=== PATIENT | male | born 1955 | race American Indian/Alaskan Native ===

== ENCOUNTER 2017-12-09 12:27 | Inpatient (IN) | payer OTHER ==
[2017-12-09] MEDS ORDERED: ASPIRIN PO ONE (12:46)
[2017-12-09] MEDS ORDERED: HEPARIN/NS 5000 UNIT/500ML(CATH LAB) 1,000 ML IR ONE (13:15)
[2017-12-09] MEDS ORDERED: CALAN ONE (13:15)
[2017-12-09] MEDS ORDERED: XYLOCAINE 2% INFILTRATI ONE ×3 (13:15→13:45)
[2017-12-09] MEDS ORDERED: NITROGLYCERIN SYRINGE 3 ML ONE (13:15)
[2017-12-09] MEDS ORDERED: HEPARIN 10,000 UNITS/10 ML ONE (13:15)
[2017-12-09] MEDS ORDERED: NACL 0.9% 1000 ML 1,000 ML ONE (13:16)
[2017-12-09] MEDS ORDERED: AGGRASTAT DRIP (12.5 MG/250 ML) 12,500 MCG/250 ML BAG IV ONE (13:19)
[2017-12-09] MEDS ORDERED: ADRENALIN ONE (13:20)
[2017-12-09] MEDS ORDERED: ATROPINE 0.1% (CARDIAC) ONE (13:20)
[2017-12-09] MEDS ORDERED: VERSED ONE (13:20)
[2017-12-09] MEDS ORDERED: XYLOCAINE CARDIAC IV ONE (13:20)
[2017-12-09 13:21] LABS: Basophils % (Auto) 0.6 % (0.0-1.8); Eosinophils # (Auto) 0.1 K/mm3 (0.0-0.4); Eosinophils % (Auto) 1.1 % (0.0-4.3); Hematocrit 39.7 % (35.5-45.6); Hemoglobin 13.6 gm/dl (11.8-15.2); Lymphocytes # (Auto) 1.8 K/mm3 (1.2-5.4); Lymphocytes % (Auto) 23.8 % (13.4-35.0); Mean Corpuscular HGB Conc 34 % (32-34); Mean Corpuscular Hemoglobin 30 pg (28-32); Mean Corpuscular Volume 88 fl (84-94); Monocytes # (Auto) 0.6 K/mm3 (0.0-0.8); Monocytes % (Auto) 8.5 % (0.0-7.3); Platelet Count 251 K/mm3 (140-440); Red Blood Count 4.51 M/mm3 (3.65-5.03); Red Cell Distribution Width 13.5 % (13.2-15.2)
[2017-12-09] MEDS ORDERED: SUBLIMAZE ONE (13:21)
--- NOTE | 2017-12-09 13:22 | Emergency Department Report ---
ED Chest Pain HPI - General Chief Complaint: Chest Pain Stated Complaint: CHEST PAIN Time Seen by Provider: 12/09/17 12:39 Source: patient, family Mode of arrival: Ambulatory Limitations: No Limitations - History of Present Illness Initial Comments: 62-year-old man with history of coronary artery disease, presents with acute onset of chest pain approximately 60-90 minutes prior to arrival while outside mowing the lawn. Discomfort was felt as a deep ache and heaviness in the chest , with some radiation to the right arm. He became diaphoretic, had to stop, but pain persisted, and patient contacted family was brought in for further evaluation. Patient had worrisome EKG changes for acute inferior myocardial infarction on initial finding at triage, was brought back for immediate evaluation, and repeat EKG after 20 minutes showed significant progression of ST elevation in the inferior lead with T-wave inversions, as well as some lateral precordial ST changes and some hyperacute T-wave changes in the anterior septal region as well. Past medical history significant for hypertension, as well as type 2 diabetes, [id number], with cardiac event 1997, with either catheterization or stenting, but patient confuses both is the same procedure. He describes the discomfort as being 8-9 out of 10, and the worst was 9-10 out of 10 prior to arrival. He has taken no medication for his pains. MD Complaint: chest pain Onset/Timin -: Sudden, minutes(s) Onset: during exertion Pain Location: substernal, left chest Pain Radiation: RUE Quality: aching, heaviness, dull Improves With: nothing Worsens With: nothing re: diaphoresis. denies: nausea Treatments Prior to Arrival: none Aspirin use within the Past 7 Days: (0) No - Related Data Allergies Allergy/AdvReac Type Severity Reaction Status Date / Time No Known Allergies Allergy Unverified 12/09/17 12:42 Heart Score - HEART Score History: Highly suspicious EKG: Significant ST-depression Age: 45-65 Risk factors: > 3 risk factors or hx of atherosclerotic disease Troponin: < normal limit (unable to fully evaluate to rapid treatment based on STEMI protocol) HEART Score: 7 ED Review of Systems ROS: Stated complaint: CHEST PAIN Other details as noted in HPI Comment: All other systems reviewed and negative Constitutional: see HPI, diaphoresis, malaise, weakness. denies: fever ENT: denies: ear pain, throat pain Respiratory: shortness of breath Cardiovascular: chest pain Endocrine: excessive sweating Gastrointestinal: denies: abdominal pain, nausea Genitourinary: denies: urgency, dysuria Musculoskeletal: denies: back pain, joint swelling, arthralgia Skin: denies: rash, lesions Neurological: denies: headache, weakness, paresthesias Psychiatric: denies: anxiety, depression Hematological/Lymphatic: denies: easy bleeding, easy bruising ED Past Medical Hx - Past Medical History Hx Hypertension: Yes Hx Diabetes: Yes Additional medical history: HYPERLIPIDEMIA - Surgical History Past Surgical History?: No - Social History Smoking Status: Never Smoker Substance Use Type: None ED Physical Exam - General Limitations: No Limitations General appearance: lethargic (awake, oriented, appears distracted, moderately diaphoretic), in distress - Head Head exam: Present: atraumatic - Eye Eye exam: Present: PERRL - ENT ENT exam: Present: normal orophraynx - Neck Neck exam: Present: normal inspection - Respiratory Respiratory exam: Present: normal lung sounds bilaterally - Cardiovascular Cardiovascular Exam: Present: regular rate - GI/Abdominal GI/Abdominal exam: Present: soft. Absent: tenderness - Rectal Rectal exam: Present: deferred - Extremities Exam Extremities exam: Present: normal inspection - Neurological Exam Neurological exam: Present: alert, oriented X3, CN II-XII intact. Absent: motor sensory deficit - Psychiatric Psychiatric exam: Present: other (distracted by discomfort) ED Course Vital Signs 12/09/17 12:42 Temperature 98.5 F Pulse Rate 91 H Respiratory 18 Rate Blood Pressure 136/75 O2 Sat by Pulse 98 Oximetry - Reevaluation(s) Reevaluation #1: 12/09/17 13:24 Patient had brief run of ventricular tachycardia, self extenuation, which repeated once, approximately 1300 hrs. No countershock given. BP 143/82. ROGERS score - Rogers Score Aspirin use within the Past 7 Days: (0) No 3 or more CAD Risk Factors: (1) Yes 2 or more Angina events in past 24 hrs: (1) Yes Known CAD with more than 50% Stenosis: (1) Yes ST Deviation Greater than 0.5mm: (1) Yes ED Medical Decision Making - EKG Data -: EKG Interpreted by Me (initial EKG worrisome for acute inferior myocardial infarction with abnorma) EKG shows normal: sinus rhythm, axis (-11), intervals (normal QT interval 430 ms), QRS complexes (normal QRS complexes), ST-T waves (1 mm elevation on the inferior lead 3 of initial EKG, with 3 mm elevation and T-wave inversion in inferior lead 3 and aVF on repeat EKG 20 minutes later. ) Rate: normal - EKG Data Interpretation: acute [place] - Medical Decision Making STEMI protocol initiated on the basis of EKG findings and patient's clinical condition. Patient prep rapidly, seen immediately by nurse practitioner Julia Araiza, and prepared for immediate Barge Pilot intervention. Critical Care Time: Yes Critical care attestation.: If time is entered above; I have spent that time in minutes in the direct care of this critically ill patient, excluding procedure time. Critical Care Time: 15 minutes of critical care time was provided in assessing and stabilizing this patient with an acute myocardial infarction, preparing patient for immediate catheterization, as well as observing and treating immediate complications of ventricular tachycardia, and possible immediate physiologic decompensation. ED Disposition Clinical Impression: Myocardial infarction acute Qualifiers: Myocardial infarction type: ST elevation myocardial infarction Involved coronary artery: other inferior wall coronary artery Qualified Code(s): I21.19 - ST elevation (STEMI) myocardial infarction involving other coronary artery of inferior wall Disposition: DC-09 OP ADMIT IP TO THIS HOSP Is pt being admited?: Yes Does the pt Need Aspirin: No (given in ED) Condition: Stable Time of Disposition: 13:28
[2017-12-09] MEDS ORDERED: MAGNESIUM SULFATE 2GM/50ML 2 GM/50 ML BAG IV ONE ×2 (13:26→13:40)
[2017-12-09] MEDS ORDERED: CORDARONE IV ONE (13:26)
[2017-12-09] MEDS ORDERED: HEPARIN 10,000 UNITS/10 ML 5,000 UNIT in NACL 0.9% 500 ML 500 ML IR ONE (13:30)
[2017-12-09] MEDS ORDERED: SUBLIMAZE IV ONE (13:35)
[2017-12-09] MEDS ORDERED: VERSED IV ONE (13:35)
[2017-12-09] MEDS ORDERED: CORDARONE 150 MG in D5W 100 ML IV ONE (13:39)
[2017-12-09] MEDS ORDERED: HEPARIN 10,000 UNITS/10 ML IV ONE (13:48)
[2017-12-09] MEDS ORDERED: AGGRASTAT DRIP IV ONE (13:51)
[2017-12-09 13:56] LABS: BUN/Creatinine Ratio 12; Blood Urea Nitrogen 16 mg/dL (9-20); Calcium 9.4 mg/dL (8.4-10.2); Hemolysis Index 2
[2017-12-09] MEDS ORDERED: EFFIENT PO ONE ×2 (14:07→14:26)
--- NOTE | 2017-12-09 14:19 | Consultation ---
History of Present Illness Consult date: 12/09/17 Requesting physician: FAYE GERONIMO Consult reason: other (STEMI) History of present illness: The pt is a 62 YO male with a past medical history significant for HTN, HLP, DM. He is previously unknown to our practice. He presented with complaints of chest pain for approx 1 hour prior to admission. He reports that he was mowing his lawn when he developed chest pain. He describes the pain as a constant, nonradiating midsternal pressure. The pain is associated with diaphoresis. He denies any SOB, n/v, dizziness or syncope. He reports a history of "heart attack " with heart cath and questionable stent placement in 1997. During evaluation, pt was noted to have NSVT. Initial ECG was concerning for STEMI and thus STEMI protocol was activated and pt was taken to labor custodian for emergent coronary angiography. Past History Past Medical History: CAD (questionable), diabetes, hypertension, hyperlipidemia Social history: lives with family. denies: smoking, alcohol abuse, prescription drug abuse Medications and Allergies Allergies Allergy/AdvReac Type Severity Reaction Status Date / Time No Known Allergies Allergy Unverified 12/09/17 12:42 Review of Systems Constitutional: no weight loss, no weight gain, no fever, no chills Ears, nose, mouth and throat: no ear pain, no nose pain, no sinus pressure, no sinus pain Cardiovascular: chest pain, high blood pressure, no orthopnea, no palpitations, no rapid/irregular heart beat, no edema, no syncope, no lightheadedness, no shortness of breath, no dyspnea on exertion, no leg edema, no decreased exercise tolerance Respiratory: no cough, no shortness of breath, no dyspnea on exertion, no congestion, no wheezing, no pain on inspiration Gastrointestinal: no abdominal pain, no nausea, no vomiting, no diarrhea, no constipation, no change in bowel habits Genitourinary Male: no dysuria, no hematuria, no flank pain, no discharge, no urinary frequency, no urinary hesitancy Musculoskeletal: no neck stiffness, no neck pain, no shooting arm pain, no arm numbness/tingling, no low back pain, no shooting leg pain, no leg numbness/ tingling, no redness of joints Integumentary: no rash, no pruritis, no redness, no sores, no wounds Neurological: no head injury, no paralysis, no weakness, no parathesias, no numbness, no tingling, no seizures, no syncope Psychiatric: no anxiety Endocrine: no cold intolerance, no heat intolerance Hematologic/Lymphatic: no easy bruising, no easy bleeding, no lymphadenopathy Allergic/Immunologic: no urticaria, no wheezing, no persistent infections Physical Examination Vital Signs Temp Pulse Resp BP Pulse Ox 98.5 F 91 H 18 136/75 98 12/09/17 12:42 12/09/17 12:42 12/09/17 12:42 12/09/17 12:42 12/09/17 12:42 General appearance: mild distress, other (pale, diaphoretic ) HEENT: Positive: PERRL, Normocephaly, Mucus Membranes Moist Neck: Positive: neck supple, trachea midline Cardiac: Positive: Reg Rate and Rhythm, S1/S2 Lungs: Positive: clear to auscultation Neuro: Positive: Grossly Intact Abdomen: Positive: Soft. Negative: Tender Skin: Positive: Clear. Negative: Rash, Wound Musculoskeletal: No Fluid Collection, No Pain, Normal Range of Motion Extremities: Absent: edema Results 12/09/17 13:11 12/09/17 13:11 CBC 12/09/17 Range/Units 13:11 WBC 7.5 (4.5-11.0) K/mm3 RBC 4.51 (3.65-5.03) M/mm3 Hgb 13.6 (11.8-15.2) gm/dl Hct 39.7 (35.5-45.6) % Plt Count 251 (140-440) K/mm3 Lymph # 1.8 (1.2-5.4) K/mm3 Owsley # 0.6 (0.0-0.8) K/mm3 Eos # 0.1 (0.0-0.4) K/mm3 Baso # 0.0 (0.0-0.1) K/mm3 Comprehensive Metabolic Panel 12/09/17 Range/Units 13:11 Sodium 139 (137-145) mmol/L Potassium 5.0 (3.6-5.0) mmol/L Chloride 99.4 (98-107) mmol/L Carbon Dioxide 25 (22-30) mmol/L BUN 16 (9-20) mg/dL Creatinine 1.3 (0.8-1.5) mg/dL Glucose 237 H (75-100) mg/dL Calcium 9.4 (8.4-10.2) mg/dL - Imaging and Cardiology Echo: pending Cardiac cath: pending EKG: report reviewed, image reviewed EKG interpretations - Telemetry EKG Rhythm: Sinus Rhythm - EKG Sinus rhythms and dysrhythmias: sinus rhythm Repolarization changes or abnormalities: early repolarization (normal variant), ST or T wave suggestive of ischemia Assessment and Plan Assessment: S/p acute inferior STEMI CAD s/p PCI of RCA x 2 NSVT - s/p 2g mag sulfate and 150mg IV amio bolus HTN HLP DM Plan: S/p [facility] with PCI x 2 of RCA. Admit to CCU per hospitalists. Initiate DAPT with ASA and effient. Obtain echo. Obtain serum Mg. Initiate low dose lopressor and lipitor. Obtain lipid panel in AM. Assessment and plan reviewed with pt and pt's family at bedside. The patient has been seen in conjunction with Dr. Jaqueline Morgan who agrees with the assessment and plan of care.
[2017-12-09] MEDS ORDERED: ALUM-MAG HYDROX-SIMETH 200-200-20MG/5ML ONE (14:25)
[2017-12-09] MEDS ORDERED: ALUM-MAG HYDROX-SIMETH 200-200-20MG/5ML PO ONE (14:26)
--- NOTE | 2017-12-09 17:11 | Cardiac Catherization Report ---
REFERRING PHYSICIAN: ER physician. INDICATION FOR PROCEDURE: The patient is a pleasant 62-year-old gentleman with unclear medical history, who presents here with significant chest pain over the past days, worse today while mowing his lawn, seen in the Emergency Room with inferior ST elevation. STEMI protocol activated. He also had an episode of nonsustained VT in the Emergency Room. The patient brought to the boat laborer urgently. Risks, benefits, alternatives discussed prior to obtaining informed consent. PROCEDURE IN DETAIL: The patient was brought to the boat laborer urgently, prepped and draped in sterile fashion, 8 mL of 2% lidocaine used to anesthetize the right groin. A standard 6 Occitan sheath used to cannulate the right common femoral artery via modified Seldinger technique. All exchanges for exchange a J-tip guidewire. JL3.5 catheter engage left main. No dampening or ventricularization. Cineangiography performed in all projections. JR4 catheter was used to cross the aortic valve under fluoroscopic guidance. Left ventriculography performed in 30 [place] to the GUL[place]AN projections via hand injections, catheter flushed. Manual pullback performed with continuous pressure monitoring. Catheter used to engage the right coronary. No dampening or ventricularization. Cineangiography performed in all projections. DATA: Aortic pressure is 150/70, LV pressure is 150, LVEDP of 16 mmHg. Left ventriculography revealed normal systolic performance with estimated ejection fraction of 55-60%. No evidence of aortic stenosis. CORONARY ANATOMY: This is a right dominant system. Left main without significant disease, bifurcates left anterior descending and left circumflex. LAD is a moderate sized vessel, courses anterior intergroove, wraps around the apex. No significant disease in the LAD or diagonal system. Left circumflex is a moderate sized vessel, courses AV groove. No significant disease. Right coronary is a large vessel, courses AV groove, distally bifurcates in the posterior and posterolateral branch. There is a atherothrombotic occlusion of the mid and proximal right coronary with ROGERS 1 flow. This appears to be a dual culprit inferior STEMI. The patient's IV fluids were increased. The patient was given heparin, Aggrastat. Creatinine noted to be normal. The patient did note to me that he has had bleeding ulcers in the past and had significant anemia. The details are unclear at this point. Given severe large right coronary and history of nonsustained VT in the Emergency Room, I decided to proceed with a transvenous pacemaker. I used a 6-Occitan sheath placed in the right femoral vein under fluoroscopic guidance via modified Seldinger technique. A balloon tipped transvenous pacemaker was placed in the right ventricular apex without difficulty. The backup pacing is noted at 60 and functioning normal. We turned our attention to PCI. Abnormal ACT is already confirmed. The patient loaded with aspirin and Aggrastat. A JR4 guide with sideholes used to engage the right coronary without difficulties. As the Phoenix wire to cross both lesions without difficulty, a 2.5 x 12 balloon used to predilate the mid RCA lesion which is the worse of the 2 lesions. I used a 3.0 x 18 Vision bare metal stent. I used a bare metal stent because of these issues with bleeding ulcers in the recent past. I used a 3.0 x 12 Vision proximally deployed at 12 CANDY for 30 seconds. I postdilated proximally with a compliant, 10 x 3.5 noncompliant balloon. Excellent angiographic result. Intravascular ultrasound was performed and multiple passes were made. Both stents are well apposed and well expanded. There is no ostial disease noted. No other significant obstructive disease noted in the right coronary. ROGERS 3 flow. Final angiogram reveals excellent result. The patient is clinically stable. No complications. The patient is chest pain free, states, moderate sedation with Versed and fentanyl from 1:40 p.m. to 2:15 p.m. CONCLUSIONS: 1. Acute atherothrombotic occlusion of the proximal and mid right coronary (dual culprit inferior STEMI) in the milieu of an inferior ST elevation myocardial infarction. 2. Successful IVUS guided PCI of proximal and mid right coronary stents, status post bare metal Vision (3.0 x 18 in the mid segment and 3.0 x 12 in the proximal segment) with excellent final angiographic and ultrasonographic result. Bare metal stent was used due to questionable recent history of peptic ulcer disease. 3. Preserved left ventricular systolic performance, estimated ejection fraction of 55% -60%. 4. No aortic stenosis. 5. No significant obstructive disease noted on the left system. 6. Successful right femoral venous access with a fluoroscopic-guided placement of transvenous pacemaker. The patient is now clinically stable, chest pain free. Abnormal ACT confirmed loaded with aspirin and Effient. Chest pain clinically hemodynamically and electrically stable. Both sheaths and pacemaker once ACT less than 170, initiate IV fluids. Check echocardiogram. Risk factor modification discussed. Results of procedure explained in length to the patient and family. All questions and concerns were addressed. JOB# [id number] SBM/NTS
[2017-12-09 17:15] LABS: Chol/HDL Ratio 4.44 %
[2017-12-09] MEDS ORDERED: TYLENOL PO ONE (19:51)
[2017-12-09] MEDS ORDERED: AMBIEN PO ONE (21:00)
[2017-12-09] MEDS: LOPRESSOR PO SCH (21:54)
[2017-12-09] MEDS ORDERED: ZOFRAN IV PRN (23:22)
[2017-12-09] MEDS ORDERED: PERCOCET 5/325 PO PRN (23:22)
[2017-12-09] MEDS ORDERED: MORPHINE IV PRN (23:22)
[2017-12-09] MEDS ORDERED: SODIUM CHLORIDE FLUSH SYRINGE 10 ML IV PRN (23:22)
[2017-12-09] MEDS ORDERED: TYLENOL PO PRN (23:22)
[2017-12-10] MEDS: NACL 0.9% 1000 ML 1,000 ML IV SCH ×2 (00:15→15:17)
[2017-12-10] MEDS: PEPCID IV SCH ×3 (00:18→22:14)
[2017-12-10 06:16] LABS: Basophils % (Auto) 0.6 % (0.0-1.8); Eosinophils # (Auto) 0.1 K/mm3 (0.0-0.4); Eosinophils % (Auto) 1.7 % (0.0-4.3); Hematocrit 39.3 % (35.5-45.6); Hemoglobin 13.3 gm/dl (11.8-15.2); Lymphocytes # (Auto) 1.8 K/mm3 (1.2-5.4); Lymphocytes % (Auto) 25.6 % (13.4-35.0); Mean Corpuscular HGB Conc 34 % (32-34); Mean Corpuscular Hemoglobin 30 pg (28-32); Mean Corpuscular Volume 88 fl (84-94); Monocytes # (Auto) 0.6 K/mm3 (0.0-0.8); Monocytes % (Auto) 8.5 % (0.0-7.3); Platelet Count 210 K/mm3 (140-440); Red Blood Count 4.45 M/mm3 (3.65-5.03); Red Cell Distribution Width 13.9 % (13.2-15.2)
[2017-12-10 06:32] LABS: Alanine Aminotransferase 15 units/L (7-56); BUN/Creatinine Ratio 20; Blood Urea Nitrogen 14 mg/dL (9-20); Calcium 8.7 mg/dL (8.4-10.2); Hemolysis Index 15
--- NOTE | 2017-12-10 06:53 | Consultation ---
History of Present Illness Consult date: 12/10/17 Reason for consult: other (STEMI s/p PCI) History of present illness: The pt is a 62 YO male with a past medical history significant for HTN, HLP, DM. He is previously unknown to our practice. He presented with complaints of chest pain for approx 1 hour prior to admission. He reports that he was mowing his lawn when he developed chest pain. He describes the pain as a constant, nonradiating midsternal pressure. The pain is associated with diaphoresis. He denies any SOB, n/v, dizziness or syncope. He reports a history of "heart attack " with heart cath and questionable stent placement in 1997. During evaluation, pt was noted to have NSVT. Initial ECG was concerning for STEMI and thus STEMI protocol was activated and patient was taken to cath lab tech for emergent coronary angiography. PCI was done Patietn has been admitted to the critical care unit for monitoring and I have been consulted for critical care management. Past History Past Medical History: CAD (questionable), diabetes, hypertension, hyperlipidemia Social history: lives with family. denies: smoking, alcohol abuse, prescription drug abuse Medications and Allergies Allergies Allergy/AdvReac Type Severity Reaction Status Date / Time No Known Allergies Allergy Unverified 12/09/17 12:42 Home Medications Medication Instructions Recorded Confirmed Last Taken Type No Known Home Medications [No 12/11/17 12/11/17 Unknown History Reported Home Medications] Active Meds: Active Medications Acetaminophen (Tylenol) 650 mg PO Q4H PRN PRN Reason: Pain MILD(1-3)/Fever >100.5/PARRA Amlodipine Besylate (Norvasc) 5 mg PO QDAY [facility] Aspirin (Baby Aspirin) 81 mg PO DAILY [facility] Atorvastatin Calcium (Lipitor) 80 mg PO QHS [facility] Last Admin: 12/09/17 21:53 Dose: 80 mg Famotidine (Pepcid) 20 mg IV BID [facility] Last Admin: 12/10/17 00:18 Dose: 20 mg Glimepiride (Amaryl) 4 mg PO QDDIAB [facility] Sodium Chloride (Nacl 0.9% 1000 Ml) 1,000 mls @ 75 mls/hr IV DIRECT [facility] Last Admin: 12/10/17 00:15 Dose: 75 mls/hr Insulin Human Lispro (Humalog) 0 unit SUB-Q ACHS [facility]; Protocol Lisinopril (Zestril) 40 mg PO QDAY [facility] Metformin HCl (Glucophage) 1,000 mg PO BIDDIAB [facility] Metoprolol Tartrate (Lopressor) 25 mg PO BID [facility] Last Admin: 12/09/17 21:54 Dose: 25 mg Morphine Sulfate (Morphine) 2 mg IV Q4H PRN PRN Reason: Pain, Moderate (4-6) Ondansetron HCl (Zofran) 4 mg IV Q8H PRN PRN Reason: Nausea And Vomiting Oxycodone/Acetaminophen (Percocet 5/325) 1 tab PO Q6H PRN PRN Reason: Pain, Moderate (4-6) Prasugrel (Effient) 10 mg PO QDAY [facility] Sodium Chloride (Sodium Chloride Flush Syringe 10 Ml) 10 ml IV BID [facility] Sodium Chloride (Sodium Chloride Flush Syringe 10 Ml) 10 ml IV PRN PRN PRN Reason: LINE FLUSH Physical Examination Vital signs: Vital Signs Temp Pulse Resp BP Pulse Ox 98.5 F 91 H 18 136/75 98 12/09/17 12:42 12/09/17 12:42 12/09/17 12:42 12/09/17 12:42 12/09/17 12:42 Results - Laboratory Findings CBC and BMP: 12/10/17 05:17 12/11/17 07:24 Abnormal lab findings: Abnormal Labs 12/09/17 12/09/17 12/09/17 13:11 13:11 15:43 Will % (Auto) 8.5 H Creatinine Glucose 237 H POC Glucose Hemoglobin A1c Total Creatine Kinase CK-MB (CK-2) CK-MB (CK-2) Rel Index Troponin T 0.039 H D Cholesterol 240 H LDL Cholesterol Direct 187 H 12/09/17 12/09/17 12/10/17 17:59 20:34 00:57 Will % (Auto) Creatinine Glucose POC Glucose 144 H Hemoglobin A1c 8.0 H Total Creatine Kinase CK-MB (CK-2) CK-MB (CK-2) Rel Index Troponin T 0.110 H* D Cholesterol LDL Cholesterol Direct 12/10/17 12/10/17 05:17 05:17 Will % (Auto) 8.5 H Creatinine 0.7 L Glucose 148 H POC Glucose Hemoglobin A1c Total Creatine Kinase 377 H CK-MB (CK-2) 42.0 H CK-MB (CK-2) Rel Index 11.1 H Troponin T 0.328 H* D Cholesterol LDL Cholesterol Direct
[2017-12-10 07:07] LABS: Albumin 3.7 g/dL (3.9-5)
--- NOTE | 2017-12-10 08:38 | History and Physical Report ---
CHIEF COMPLAINT: Left-sided chest pain after lawn mowing at 11:00 a.m. HISTORY OF PRESENT ILLNESS: The patient is a 62-year-old male with history of hypertension, hyperlipidemia, insulin-dependent diabetes who was mowing his lawn when he developed chest tightness. Midsternal chest pain associated with diaphoresis. No shortness of breath, no nausea, no vomiting, no syncope. The patient had a heart catheterization before in 1997 and had clean coronary arteries at that time. The patient came to the ER and was treated as a STEMI and was taken to the entry level lab technician directly. In the entry level lab technician, the patient had 2 stents placed. PAST MEDICAL HISTORY: Significant for coronary artery disease, diabetes, hypertension, hyperlipidemia. SOCIAL HISTORY: Lives with the family. Does not smoke. No alcohol, no recreational drugs. PAST SURGICAL HISTORY: None. FAMILY HISTORY: Significant for hypertension. REVIEW OF SYSTEMS: Significant for retrosternal chest tightness and associated diaphoresis. No syncope, no seizures. Otherwise, a 14-point review of systems essentially negative. PHYSICAL EXAMINATION: GENERAL: Young elderly male, cooperative during examination. VITAL SIGNS: Blood pressure is 137/68, temperature is 98, pulse is 62, respirations 11. HEENT: Unremarkable. Pupils equal and reactive. NECK: Supple, no lymphadenopathy, no thyromegaly. LUNGS: Clear to auscultation and percussion. Good air entry. CARDIOVASCULAR: S1, S2 heard. No gallop, no murmur, no rub. Apical impulse in left fifth intercostal space and midclavicular line. ABDOMEN: Soft and benign. No hepatosplenomegaly. No guarding, no rigidity. Hernial orifices are normal. EXTREMITIES: Good pedal pulses. No pedal edema. CENTRAL NERVOUS SYSTEM: Alert and oriented x 4, nonfocal exam. LABORATORY DATA and EKG: EKG shows early repolarization, ST-T wave elevation and suggestive of ischemia. White count is 7500, H and H is 13.6 and 39.7, platelet count is 251,000. Electrolytes are normal. Glucose is 237. Troponin is 0.039, elevated 0.110 and 0.328. Cholesterol is 240, LDL is 187. ASSESSMENT AND PLAN: 1. STEMI. The patient had cardiac catheterization and 2 stents placed. The patient on aspirin and metoprolol 25 twice a day. Also, atorvastatin 80 mg daily and Effient 10 mg once a day for the stents. 2. Insulin-dependent diabetes. Continue home insulin and coverage. Continue metformin and glimepiride 4 mg once a day. Also, lisinopril 40 mg once a day. 3. Hyperlipidemia. Continue atorvastatin 80 mg p.o. daily. 4. Coronary artery disease. The patient already on aspirin and Effient. 5. DVT prophylaxis, Lovenox 40 mg subcutaneous daily. CRITICAL CARE STATEMENT: Due to high probability of a clinically significant sudden or life-threatening deterioration of the pulmonary, cardiac and renal systems, required my full and direct attention, intervention, and personal management. My aggregate critical care time was 35 minutes. This time is in addition to time spent performing reported procedures, but includes the followin. Data review and interpretation. 2. The patient assessment and monitoring of vital signs. 3. Documentation. 4. Medication orders and management. JOB# [id number]
[2017-12-10] MEDS: HumaLOG SUB-Q SCH ×4 (09:45→22:16)
--- NOTE | 2017-12-10 10:04 | Progress Note ---
Assessment and Plan Assessment: S/p acute inferior STEMI CAD s/p PCI of RCA NSVT HTN HLP DM - HgbA1c 8.0 Plan: S/p C yesterday with PCI x 2 of RCA. Cont ASA, effient, lipitor, lopressor. Initiate lisinopril. Obtain echo. Currently stable cardiac status. Pt may tx out of ICU to telemetry from cardiology standpoint. Possible d/c home in AM. Assessment and plan reviewed with pt and pt's at bedside. The patient has been seen in conjunction with Dr. Jaqueline Morgan who agrees with the assessment and plan of care. Subjective Date of service: 12/10/17 Principal diagnosis: STEMI Interval history: Pt resting comfortably in bed, denies any current complaints. no acute events overnight. telemetry reviewed - no arrhythmias noted overnight. at bedside. Objective Last Vital Signs Temp 97.7 F 12/10/17 08:00 Pulse 62 12/10/17 06:28 Resp 19 12/10/17 06:32 BP 137/68 12/10/17 06:32 Pulse Ox 97 12/10/17 06:32 - Physical Examination General: No Apparent Distress HEENT: Positive: PERRL, Normocephaly, Mucus Membranes Moist Neck: Positive: neck supple, trachea midline Cardiac: Positive: Reg Rate and Rhythm, S1/S2 Lungs: Positive: clear to auscultation Neuro: Positive: Grossly Intact Abdomen: Positive: Soft. Negative: Tender Skin: Positive: Clear. Negative: Rash, Wound Incision: Cardiac Cath Site (right femoral c/d/i with no evidence of bleeding or hematoma) Musculoskeletal: No Fluid Collection, No Pain, Normal Range of Motion Extremities: Absent: edema - Labs and Meds Cardiac Enzymes 12/10/17 Range/Units 05:17 AST 40 (5-40) units/L CK-MB (CK-2) 42.0 H (0.0-4.0) ng/mL Lipids 12/09/17 Range/Units 15:43 Triglycerides 59 (2-149) mg/dL Cholesterol 240 H (50-199) mg/dL HDL Cholesterol 54 (40-59) mg/dL Cholesterol/HDL Ratio 4.44 % CBC 12/09/17 12/10/17 Range/Units 13:11 05:17 WBC 7.5 6.9 (4.5-11.0) K/mm3 RBC 4.51 4.45 (3.65-5.03) M/mm3 Hgb 13.6 13.3 (11.8-15.2) gm/dl Hct 39.7 39.3 (35.5-45.6) % Plt Count 251 210 (140-440) K/mm3 Lymph # 1.8 1.8 (1.2-5.4) K/mm3 [place] # 0.6 0.6 (0.0-0.8) K/mm3 Eos # 0.1 0.1 (0.0-0.4) K/mm3 Baso # 0.0 0.0 (0.0-0.1) K/mm3 Comprehensive Metabolic Panel 12/09/17 12/10/17 Range/Units 13:11 05:17 Sodium 139 138 (137-145) mmol/L Potassium 5.0 4.4 (3.6-5.0) mmol/L Chloride 99.4 104.0 (98-107) mmol/L Carbon Dioxide 25 23 (22-30) mmol/L BUN 16 14 (9-20) mg/dL Creatinine 1.3 0.7 L (0.8-1.5) mg/dL Glucose 237 H 148 H (75-100) mg/dL Calcium 9.4 8.7 (8.4-10.2) mg/dL AST 40 (5-40) units/L ALT 15 (7-56) units/L Alkaline Phosphatase 53 (35-129) units/L Total Protein 6.6 (6.3-8.2) g/dL Albumin 3.7 L (3.9-5) g/dL - Imaging and Cardiology EKG: report reviewed, image reviewed Echo: pending Cardiac cath: pending - Telemetry EKG Rhythm: Sinus Rhythm - EKG Sinus rhythms and dysrhythmias: sinus rhythm Repolarization changes or abnormalities: early repolarization (normal variant), ST or T wave suggestive of ischemia
[2017-12-10] MEDS: ZESTRIL PO SCH (10:59)
[2017-12-10] MEDS: EFFIENT PO SCH (10:59)
[2017-12-10] MEDS: BABY ASPIRIN PO SCH (10:59)
[2017-12-10] MEDS: NORVASC PO SCH (11:00)
[2017-12-10] MEDS: LOPRESSOR PO SCH ×2 (11:00→22:15)
[2017-12-10] MEDS: AMARYL PO SCH (11:01)
[2017-12-10] MEDS: GLUCOPHAGE PO SCH (15:16)
[2017-12-10] MEDS: SODIUM CHLORIDE FLUSH SYRINGE 10 ML IV SCH (15:18)
--- NOTE | 2017-12-10 17:46 | Progress Note ---
Assessment and Plan Assessment and Plan Assessment: S/p acute inferior STEMI CAD s/p PCI of RCA NSVT HTN HLP DM - HgbA1c 8.0 Plan: Patient remains chest pain free s/p STEMI/LHC on 12/09 with PCI x 2 of RCA. Echo showed EF 55-60%, normal diastolic filling. Currently stable cardiac status. Cont ASA, effient, lipitor, lopressor, lisinopril. Subjective Date of service: 12/10/17 Principal diagnosis: STEMI Interval history: Doing well Objective - Constitutional Vitals: Vital Signs - 12hr 12/10/17 12/10/17 12/10/17 05:50 06:00 06:10 Temperature Pulse Rate 66 64 62 Respiratory 12 15 12 Rate Blood Pressure 129/69 137/68 137/68 O2 Sat by Pulse 98 98 97 Oximetry 12/10/17 12/10/17 12/10/17 06:20 06:28 06:30 Temperature Pulse Rate 62 62 62 Respiratory 11 L 19 13 Rate Blood Pressure 137/68 130/69 O2 Sat by Pulse 98 97 98 Oximetry 12/10/17 12/10/17 12/10/17 06:32 06:40 06:50 Temperature 98.0 F Pulse Rate 63 64 Respiratory 19 13 13 Rate Blood Pressure 137/68 130/69 130/69 O2 Sat by Pulse 97 98 97 Oximetry 12/10/17 12/10/17 12/10/17 07:00 07:10 07:20 Temperature Pulse Rate 68 65 84 Respiratory 15 13 10 L Rate Blood Pressure 141/75 141/75 141/75 O2 Sat by Pulse 97 97 97 Oximetry 12/10/17 12/10/17 12/10/17 07:30 07:40 07:50 Temperature Pulse Rate 64 73 61 Respiratory 12 11 L 10 L Rate Blood Pressure 141/75 130/71 130/71 O2 Sat by Pulse 99 99 98 Oximetry 12/10/17 12/10/17 12/10/17 08:00 08:10 08:20 Temperature 97.7 F Pulse Rate 72 67 74 Respiratory 18 13 21 Rate Blood Pressure 141/75 122/74 122/74 O2 Sat by Pulse 98 100 99 Oximetry 12/10/17 12/10/17 12/10/17 08:30 08:40 08:50 Temperature Pulse Rate 77 74 95 H Respiratory 15 18 24 Rate Blood Pressure 122/74 148/73 148/73 O2 Sat by Pulse 98 98 98 Oximetry 12/10/17 12/10/17 12/10/17 09:00 09:10 09:20 Temperature Pulse Rate 66 66 69 Respiratory 16 15 14 Rate Blood Pressure 138/72 138/72 138/72 O2 Sat by Pulse 100 99 99 Oximetry 12/10/17 12/10/17 12/10/17 09:30 09:40 09:50 Temperature Pulse Rate 74 74 66 Respiratory 16 12 13 Rate Blood Pressure 146/78 146/78 146/78 O2 Sat by Pulse 99 99 99 Oximetry 12/10/17 12/10/17 12/10/17 10:00 10:10 10:20 Temperature Pulse Rate 64 69 69 Respiratory 13 18 14 Rate Blood Pressure 134/70 134/70 134/70 O2 Sat by Pulse 99 99 99 Oximetry 12/10/17 12/10/17 12/10/17 10:30 10:40 10:50 Temperature Pulse Rate 66 68 62 Respiratory 11 L 12 17 Rate Blood Pressure 139/84 139/84 139/84 O2 Sat by Pulse 99 99 98 Oximetry 12/10/17 12/10/17 12/10/17 10:59 11:00 11:10 Temperature Pulse Rate 63 67 62 Respiratory 16 15 Rate Blood Pressure 139/84 139/84 139/77 O2 Sat by Pulse 98 100 Oximetry 12/10/17 12/10/17 12/10/17 11:20 11:30 11:40 Temperature Pulse Rate 62 63 63 Respiratory 15 16 10 L Rate Blood Pressure 139/77 132/81 139/84 O2 Sat by Pulse 98 98 99 Oximetry 12/10/17 12/10/17 12/10/17 11:50 12:00 12:10 Temperature 97.8 F Pulse Rate 60 59 L 61 Respiratory 14 16 16 Rate Blood Pressure 139/84 139/84 141/75 O2 Sat by Pulse 100 98 98 Oximetry 12/10/17 12/10/17 12/10/17 12:20 12:30 12:40 Temperature Pulse Rate 56 L 57 L 57 L Respiratory 17 11 L 13 Rate Blood Pressure 141/75 129/73 129/73 O2 Sat by Pulse 100 98 98 Oximetry 12/10/17 12/10/17 12/10/17 12:50 13:00 13:10 Temperature Pulse Rate 56 L 58 L 58 L Respiratory 13 14 13 Rate Blood Pressure 129/73 134/71 134/71 O2 Sat by Pulse 99 99 99 Oximetry 12/10/17 12/10/17 12/10/17 13:20 13:30 13:40 Temperature Pulse Rate 59 L 59 L 58 L Respiratory 11 L 13 14 Rate Blood Pressure 134/71 134/72 134/72 O2 Sat by Pulse 99 99 98 Oximetry 12/10/17 12/10/17 12/10/17 13:50 14:00 14:10 Temperature Pulse Rate 68 61 61 Respiratory 12 17 13 Rate Blood Pressure 134/72 132/72 132/72 O2 Sat by Pulse 98 100 99 Oximetry 12/10/17 12/10/17 12/10/17 14:20 14:31 14:41 Temperature Pulse Rate 64 67 66 Respiratory 13 14 17 Rate Blood Pressure 132/72 165/96 132/72 O2 Sat by Pulse 98 99 99 Oximetry 12/10/17 12/10/17 12/10/17 14:51 15:00 15:11 Temperature Pulse Rate 61 63 61 Respiratory 17 15 11 L Rate Blood Pressure 132/72 145/82 145/82 O2 Sat by Pulse 99 94 100 Oximetry 12/10/17 12/10/17 12/10/17 15:21 15:30 15:41 Temperature Pulse Rate 60 60 65 Respiratory 12 13 11 L Rate Blood Pressure 145/82 148/69 148/69 O2 Sat by Pulse 99 100 98 Oximetry 12/10/17 12/10/17 12/10/17 15:51 15:58 16:00 Temperature 97.9 F Pulse Rate 62 61 Respiratory 21 12 Rate Blood Pressure 148/69 144/74 O2 Sat by Pulse 99 99 Oximetry General appearance: Present: no acute distress, well-nourished - EENT Eyes: PERRL, EOM intact ENT: hearing intact, clear oral mucosa Ears: bilateral: normal - Neck Neck: supple, normal ROM - Respiratory Respiratory effort: normal Respiratory: bilateral: CTA - Breasts Breasts: normal - Cardiovascular Rhythm: regular Heart Sounds: Present: S1 & S2. Absent: gallop, rub Extremities: pulses intact, No edema, normal color, Full ROM - Gastrointestinal General gastrointestinal: Present: soft, non-tender, non-distended, normal bowel sounds - Genitourinary Male genitourinary: normal - Integumentary Integumentary: clear, warm, dry - Musculoskeletal Musculoskeletal: 1, strength equal bilaterally - Neurologic Neurologic: moves all extremities - Psychiatric Psychiatric: memory intact, appropriate mood/affect, intact judgment & insight - Labs CBC & Chem 7: 12/10/17 05:17 12/11/17 07:24 Labs: Abnormal lab results 12/09/17 12/09/17 12/09/17 Range/Units 14:04 16:21 17:59 [place] % (Auto) (0.0-7.3) % Activated Clotting Time 241 H 142 H (74-137) Creatinine (0.8-1.5) mg/dL Glucose (75-100) mg/dL POC Glucose (70-105) Hemoglobin A1c (4-6) % Total Creatine Kinase (55-170) units/L CK-MB (CK-2) (0.0-4.0) ng/mL CK-MB (CK-2) Rel Index (0-4) Troponin T 0.110 H* D (0.00-0.029) ng/mL Albumin (3.9-5) g/dL 12/09/17 12/10/17 12/10/17 Range/Units 20:34 00:57 05:17 [place] % (Auto) 8.5 H (0.0-7.3) % Activated Clotting Time (74-137) Creatinine (0.8-1.5) mg/dL Glucose (75-100) mg/dL POC Glucose 144 H (70-105) Hemoglobin A1c 8.0 H (4-6) % Total Creatine Kinase (55-170) units/L CK-MB (CK-2) (0.0-4.0) ng/mL CK-MB (CK-2) Rel Index (0-4) Troponin T (0.00-0.029) ng/mL Albumin (3.9-5) g/dL 12/10/17 12/10/17 12/10/17 Range/Units 05:17 08:04 11:50 [place] % (Auto) (0.0-7.3) % Activated Clotting Time (74-137) Creatinine 0.7 L (0.8-1.5) mg/dL Glucose 148 H (75-100) mg/dL POC Glucose 181 H 166 H (70-105) Hemoglobin A1c (4-6) % Total Creatine Kinase 377 H (55-170) units/L CK-MB (CK-2) 42.0 H (0.0-4.0) ng/mL CK-MB (CK-2) Rel Index 11.1 H (0-4) Troponin T 0.328 H* D (0.00-0.029) ng/mL Albumin 3.7 L (3.9-5) g/dL 12/10/17 Range/Units 15:49 [place] % (Auto) (0.0-7.3) % Activated Clotting Time (74-137) Creatinine (0.8-1.5) mg/dL Glucose (75-100) mg/dL POC Glucose 117 H (70-105) Hemoglobin A1c (4-6) % Total Creatine Kinase (55-170) units/L CK-MB (CK-2) (0.0-4.0) ng/mL CK-MB (CK-2) Rel Index (0-4) Troponin T (0.00-0.029) ng/mL Albumin (3.9-5) g/dL
[2017-12-10] MEDS ORDERED: MAGNESIUM SULFATE 1 GM/25 ML IV ONE (20:09)
[2017-12-10] MEDS ORDERED: MAGNESIUM SULFATE 1 GM in NACL 0.9% 50 ML IV ONE (20:30)
[2017-12-11 08:04] LABS: BUN/Creatinine Ratio 15; Blood Urea Nitrogen 12 mg/dL (9-20); Calcium 8.6 mg/dL (8.4-10.2); Hemolysis Index 8
--- NOTE | 2017-12-11 09:11 | Progress Note ---
Subjective Date of service: 12/11/17 Principal diagnosis: STEMI Objective Vital Signs - 12hr 12/10/17 12/10/17 12/10/17 21:21 21:30 21:40 Temperature Pulse Rate 59 L 63 60 Respiratory 13 11 L 13 Rate Blood Pressure 132/68 115/72 115/72 O2 Sat by Pulse 96 98 97 Oximetry 12/10/17 12/10/17 12/10/17 21:51 22:00 22:11 Temperature Pulse Rate 66 59 L 60 Respiratory 14 10 L 11 L Rate Blood Pressure 115/72 133/71 133/71 O2 Sat by Pulse 98 97 97 Oximetry 12/10/17 12/11/17 12/11/17 22:15 00:05 04:53 Temperature 98.3 F 98.0 F Pulse Rate 67 56 L 73 Respiratory 18 18 Rate Blood Pressure 133/71 127/68 120/65 O2 Sat by Pulse 96 96 Oximetry CBC and BMP: 12/10/17 05:17 12/11/17 07:24 Abnormal lab findings: Abnormal Labs 12/09/17 12/09/17 12/09/17 13:11 13:11 14:04 [place] % (Auto) 8.5 H Activated Clotting Time 241 H Creatinine Glucose 237 H POC Glucose Hemoglobin A1c Total Creatine Kinase CK-MB (CK-2) CK-MB (CK-2) Rel Index Troponin T Albumin Cholesterol LDL Cholesterol Direct 12/09/17 12/09/17 12/09/17 15:43 16:21 17:59 [place] % (Auto) Activated Clotting Time 142 H Creatinine Glucose POC Glucose Hemoglobin A1c Total Creatine Kinase CK-MB (CK-2) CK-MB (CK-2) Rel Index Troponin T 0.039 H D 0.110 H* D Albumin Cholesterol 240 H LDL Cholesterol Direct 187 H 12/09/17 12/10/17 12/10/17 20:34 00:57 05:17 [place] % (Auto) 8.5 H Activated Clotting Time Creatinine Glucose POC Glucose 144 H Hemoglobin A1c 8.0 H Total Creatine Kinase CK-MB (CK-2) CK-MB (CK-2) Rel Index Troponin T Albumin Cholesterol LDL Cholesterol Direct 12/10/17 12/10/17 12/10/17 05:17 08:04 11:50 [place] % (Auto) Activated Clotting Time Creatinine 0.7 L Glucose 148 H POC Glucose 181 H 166 H Hemoglobin A1c Total Creatine Kinase 377 H CK-MB (CK-2) 42.0 H CK-MB (CK-2) Rel Index 11.1 H Troponin T 0.328 H* D Albumin 3.7 L Cholesterol LDL Cholesterol Direct 12/10/17 12/10/17 15:49 22:13 [place] % (Auto) Activated Clotting Time Creatinine Glucose POC Glucose 117 H 137 H Hemoglobin A1c Total Creatine Kinase CK-MB (CK-2) CK-MB (CK-2) Rel Index Troponin T Albumin Cholesterol LDL Cholesterol Direct
[2017-12-11] MEDS: SODIUM CHLORIDE FLUSH SYRINGE 10 ML IV SCH ×2 (09:44→12:37)
[2017-12-11] MEDS: HumaLOG SUB-Q SCH ×2 (09:44→14:30)
--- NOTE | 2017-12-11 11:27 | Progress Note ---
Assessment and Plan Assessment: S/p acute inferior STEMI CAD s/p PCI of RCA NSVT HTN HLP DM - HgbA1c 8.0 Plan: Patient remains chest pain free s/p STEMI/LHC on 12/09 with PCI x 2 of RCA. Echo showed EF 55-60%, normal diastolic filling. Currently stable cardiac status. Cont ASA, effient, lipitor, lopressor, lisinopril. Patient may be discharged from a cardiac standpoint. Follow up appointment with Dr. Jaqueline Morgan in the [place] office on 12/20/17 at 3: 15 pm. Assessment and plan reviewed with pt at bedside. The patient has been seen in conjunction with Dr. Justin who agrees with the assessment and plan of care. Subjective Date of service: 12/11/17 Principal diagnosis: STEMI Interval history: The patient is resting in bed. C/o some bilateral arm pain which he states is chronic. Denies chest pain or shortness of breath. Sinus rhythm on the monitor. Objective Last Vital Signs Temp 98.0 F 12/11/17 04:53 Pulse 73 12/11/17 04:53 Resp 18 12/11/17 04:53 BP 120/65 12/11/17 04:53 Pulse Ox 96 12/11/17 04:53 - Physical Examination General: No Apparent Distress HEENT: Positive: PERRL, Normocephaly, Mucus Membranes Moist Neck: Positive: neck supple, trachea midline Cardiac: Positive: Reg Rate and Rhythm, S1/S2 Lungs: Positive: clear to auscultation Neuro: Positive: Grossly Intact Abdomen: Positive: Soft. Negative: Tender Skin: Positive: Clear. Negative: Rash, Wound Incision: Cardiac Cath Site (right femoral c/d/i with no evidence of bleeding or hematoma) Musculoskeletal: No Fluid Collection, No Pain, Normal Range of Motion Extremities: Absent: edema - Labs and Meds Comprehensive Metabolic Panel 12/11/17 Range/Units 07:24 Sodium 139 (137-145) mmol/L Potassium 4.1 (3.6-5.0) mmol/L Chloride 102.8 (98-107) mmol/L Carbon Dioxide 25 (22-30) mmol/L BUN 12 (9-20) mg/dL Creatinine 0.8 (0.8-1.5) mg/dL Calcium 8.6 (8.4-10.2) mg/dL - Imaging and Cardiology EKG: report reviewed, image reviewed Echo: report reviewed (11/2017: EF 55-60%) Cardiac cath: report reviewed - Telemetry EKG Rhythm: Sinus Rhythm - EKG Sinus rhythms and dysrhythmias: sinus rhythm Repolarization changes or abnormalities: early repolarization (normal variant), ST or T wave suggestive of ischemia
[2017-12-11] MEDS: EFFIENT PO SCH (12:36)
[2017-12-11] MEDS: BABY ASPIRIN PO SCH (12:36)
[2017-12-11] MEDS: AMARYL PO SCH (12:36)
[2017-12-11] MEDS: GLUCOPHAGE PO SCH (12:36)
[2017-12-11] MEDS: LOPRESSOR PO SCH (12:36)
[2017-12-11] MEDS: NORVASC PO SCH (12:37)
[2017-12-11] MEDS: ZESTRIL PO SCH (12:37)
[2017-12-11 13:28] VITALS: BP 130/70
[2017-12-11] MEDS: PEPCID IV SCH (14:34)
--- NOTE | 2017-12-11 16:18 | Discharge Summary ---
Providers - Providers Date of Admission: 12/09/17 15:49 Date of discharge: 12/11/17 Attending physician: RODY HAYNES 12/09/17 15:22 Consult to Cardiac Rehabilitation [CONS] Routine Reason For Exam: Cardiac Rehab Evaluation 12/09/17 19:36 Consult to Physician [CONS] Routine Comment: Consulting Provider: LACIE POWELL Physician Instructions: Reason For Exam: ICU management 12/09/17 23:22 Consult to Physician [CONS] Routine Comment: 12/09/20171950 I spoke with Dr. Roblero Consulting Provider: EVENS KEENE Physician Instructions: Reason For Exam: STEMI Primary care physician: STORE MERCHANDISER Hospitalization Condition: Stable Hospital course: Assessment and Plan Assessment: S/p acute inferior STEMI CAD s/p PCI of RCA NSVT HTN HLP DM - HgbA1c 8.0 Plan: Patient remains chest pain free s/p STEMI/LHC on 12/09 with PCI x 2 of RCA. Echo showed EF 55-60%, normal diastolic filling. Currently stable cardiac status. Cont ASA, effient, lipitor, lopressor, lisinopril. Follow up appointment with Dr. Jaqueline Keene in the [place] office on 12/20/17 at 3: 15 pm. Assessment and plan reviewed with pt at bedside. Disposition: DC-01 TO HOME OR SELFCARE Core Measure Documentation - Palliative Care Palliative Care/ Comfort Measures: Not Applicable - Core Measures Any of the following diagnoses?: acute MT - Acute MT Discharge Requirements Aspirin at discharge: Yes ALICJA/ARB for LVSD if EF <40%: Yes Beta sanket at discharge: Yes Statin for LDL = or >100 mg/dl on DC: Yes Exam - Constitutional Vitals: Temp Pulse Resp BP Pulse Ox 98.0 F 64 16 130/70 97 12/11/17 04:53 12/11/17 12:21 12/11/17 12:21 12/11/17 12:21 12/11/17 12:21 General appearance: Present: no acute distress, well-nourished - EENT Eyes: Present: PERRL ENT: hearing intact, clear oral mucosa - Neck Neck: Present: supple, normal ROM - Respiratory Respiratory effort: normal Respiratory: bilateral: CTA - Cardiovascular Heart Sounds: Present: S1 & S2. Absent: rub, click - Extremities Extremities: pulses symmetrical, No edema Peripheral Pulses: within normal limits - Abdominal General gastrointestinal: Present: soft, non-tender, non-distended, normal bowel sounds Male genitourinary: Present: normal - Integumentary Integumentary: Present: clear, warm, dry - Musculoskeletal Musculoskeletal: gait normal, strength equal bilaterally - Psychiatric Psychiatric: appropriate mood/affect, intact judgment & insight - Neurologic Neurologic: CNII-XII intact, moves all extremities Plan Activity: no restrictions Diet: low fat, low cholesterol, low salt Follow up with: PRIMARY CARE, [Primary Care Provider] - 7 Days EVENS KEENE MD [Staff Physician] - 7 Days
[2017-12-11] MEDS ORDERED: PEPCID PO SCH (22:00)
== END 2017-12-11 18:53 | disposition home or self-care (01) | DRG 249 ==
LOC: ED 12:27 → CATH 15:32 → CC1 15:49 → 4A 12-10 23:09
PROVIDERS: ADMIT Internal Medicine; ATTEND Internal Medicine
PROC: 02703EZ Dilation of Coronary Artery, One Artery with Two Intraluminal Devices, Percutaneous Approach (ICD-10-PCS; principal; 2017-12-09)
PROC: 4A023N7 Measurement of Cardiac Sampling and Pressure, Left Heart, Percutaneous Approach (ICD-10-PCS; 2017-12-09)
PROC: B2111ZZ Fluoroscopy of Multiple Coronary Arteries using Low Osmolar Contrast (ICD-10-PCS; 2017-12-09)
PROC: B2151ZZ Fluoroscopy of Left Heart using Low Osmolar Contrast (ICD-10-PCS; 2017-12-09)
PROC: B240ZZ3 Ultrasonography of Single Coronary Artery, Intravascular (ICD-10-PCS; 2017-12-09)
DX: I21.19 ST elevation (STEMI) myocardial infarction involving other coronary artery of inferior wall (principal); I47.1 Supraventricular tachycardia; I10 Essential (primary) hypertension; E78.5 Hyperlipidemia, unspecified; E11.9 Type 2 diabetes mellitus without complications; Z82.49 Family history of ischemic heart disease and other diseases of the circulatory system; I25.10 Atherosclerotic heart disease of native coronary artery without angina pectoris
CPT/HCPCS: 33210; 36415; 80048; 80053; 80061; 82550; 82553; 82962; 83036; 83735; 84484; 85025; 85347; 92941; 92978; 93005; 93010; 93306; 93458; 96374; A9270-GY; C1725; C1753; C1769; C1876; C1887; C1894; J0171; J0282; J0461; J1644; J2001; J2250; J3010; J3246; J3475; J7030; J7040; Q9967